=== PATIENT | male | born 1955 | race Caucasian/White ===

== ENCOUNTER 2021-12-23 05:20 | Day surgery (SDC) | payer OTHER, BC, SELFPAY ==
[~2021-12-23] VITALS: Ht 188 cm; Wt 89.8 kg
[2021-12-23] MEDS ORDERED: CEFAZOLIN SOD 1 GM in D5W 50 ML IV ONE (07:00)
[2021-12-23] MEDS ORDERED: LR 1,000 ML IV.SOLN IV ONE (07:26)
[2021-12-23] MEDS ORDERED: NS 100 ML BAG IV ONE (07:26)
[2021-12-23] MEDS ORDERED: PROPOFOL 200MG/ 20ML VIAL (DIPRIVAN) IV ONE (07:26)
[2021-12-23] MEDS ORDERED: ONDANSETRON HCL 4 MG/2 ML VIAL IVP ONE (07:26)
[2021-12-23] MEDS ORDERED: NS 1000 ML IV.SOLN IV ONE (07:26)
[2021-12-23] MEDS ORDERED: BUPIVACAINE /PF 0.25% 10 ML VIAL INJ ONE (07:26)
[2021-12-23] MEDS ORDERED: ROCURONIUM BROMIDE 10 MG/ML (ZEMURON) IV ONE (07:26)
[2021-12-23] MEDS ORDERED: DESFLURANE 15 MIN GAS INH ONE (07:26)
[2021-12-23] MEDS ORDERED: NS IRRIG SOLN 1000 ML IR ONE (07:26)
[2021-12-23] MEDS ORDERED: MIDAZOLAM HCL 5 MG/5 ML VIAL IVP ONE (07:26)
[2021-12-23] MEDS ORDERED: DEXAMETHASONE SOD PHOSPHATE 4 MG/ML VIAL IVP ONE (07:26)
[2021-12-23] MEDS ORDERED: fentaNYL CITRATE 250 MCG/5 ML AMP IV ONE (07:26)
[2021-12-23] MEDS ORDERED: LIDOCAINE 1% 10 MG/ML, 20 ML MDV INJ ONE (07:26)
[2021-12-23] MEDS ORDERED: SUGAMMADEX SODIUM 200 MG/2 ML VIAL IV ONE (07:26)
[2021-12-23] MEDS ORDERED: ACETAMINOPHEN I.V. 1000 MG 100 ML IV ONE (08:01)
[2021-12-23] MEDS ORDERED: LABETALOL 100 MG/ 20ML VIAL IVP PRN (08:15)
[2021-12-23] MEDS ORDERED: LR 1,000 ML IV SCH (08:15)
[2021-12-23] MEDS ORDERED: HYDROmorphone 1 MG/ML INJ. CARTRIDGE IVP PRN ×3 (08:15→09:00)
[2021-12-23] MEDS ORDERED: hydrALAZINE HCL 20 MG/ML VIAL IVP PRN (08:15)
[2021-12-23] MEDS ORDERED: METOCLOPRAMIDE HCL 10 MG/2 ML VIAL IVP PRN (08:15)
[2021-12-23] MEDS ORDERED: MIDAZOLAM HCL 2 MG/2 ML VIAL (VERSED) IVP PRN (08:15)
[2021-12-23] MEDS ORDERED: MEPERIDINE HCL/PF 25 MG/ML DISP.SYRIN IVP PRN (08:15)
[2021-12-23] MEDS ORDERED: D5/0.45 NS 1,000 ML IV SCH (09:00)
[2021-12-23] MEDS ORDERED: HYDROcodone/ACETAMIN 5-325 MG TAB (NORCO/ VICODIN) PO PRN ×2 (09:00)
[2021-12-23] MEDS ORDERED: METOCLOPRAMIDE HCL 10 MG/2 ML VIAL ONE (09:55)
[2021-12-23 11:38] VITALS: BP_SYST 127
== END 2021-12-23 11:30 | disposition home or self-care (01) ==
LOC: SDS 05:20 → SMU 05:20 → EDBD 07:30 → SDS 11:30
PROVIDERS: ATTEND Colon & Rectal Surgery
DX: K80.12 Calculus of gallbladder with acute and chronic cholecystitis without obstruction (principal); E78.5 Hyperlipidemia, unspecified; N40.1 Benign prostatic hyperplasia with lower urinary tract symptoms; F17.200 Nicotine dependence, unspecified, uncomplicated; Z79.899 Other long term (current) drug therapy; Z20.822 Contact with and (suspected) exposure to COVID-19
CPT/HCPCS: 36415; 47563; 74300; 87426; 88304; C1727; C1758; J0131; J0690; J1100; J2001; J2250; J2405; J2704; J2765; J3010; J3490 ×2; J7030; J7060; J7120; Q9967; U0003; 76000